=== PATIENT | female | born 1950 | race Caucasian/White ===

== ENCOUNTER 2018-06-07 20:31 | Emergency (ER) | payer MEDICARE, OTHER, SELFPAY ==
[2018-06-07 20:55] VITALS: BP 148/97; PULSE 88; RESP 21; TEMP 36.9; O2SAT 94; BMI 24.3
== END 2018-06-07 22:14 | disposition left against medical advice (07) ==
PROVIDERS: Emergency Provider Emergency Medicine; Family Provider Family Medicine; PCP Family Medicine
DX: Z53.21 Procedure and treatment not carried out due to patient leaving prior to being seen by health care provider (principal)
CPT/HCPCS: 99282

== ENCOUNTER 2020-04-28 16:49 | Observation (INO) | payer MEDICARE, OTHER, SELFPAY ==
[2020-04-28] VITALS (10 sets, daily range): BP systolic 107–172; BP diastolic 68–92; PULSE 60–80; RESP 16–28; TEMP 36.2–36.7; O2SAT 95–99; BMI 26.6
--- NOTE | 2020-04-28 17:07 | ED_ITS ---
HPI - Neuro Symptoms/Deficit General Chief Complaint: Neuro Symptoms/Deficit Stated Complaint: Vision changes, weakness, bumping into things Time Seen by Provider: 04/28/20 16:59 Source: patient Mode of arrival: Ambulatory Limitations: no limitations History of Present Illness HPI Narrative: Patient is a 69-year-old female who is here in the emergency department with her for evaluation of 2 separate episodes that occurred earlier today. States that the 1st episode involved his situation where she was at her home when she noticed vision disturbances. She stated that she did have blurry vision had difficult time focusing. Her thought that she was having some word-finding issues at the time it potentially was having drooping of the right side of her face but he was not completely sure this. In the thought that the symptoms lasted approximately 10 minutes and then completely resolved. She states that it occurred again a couple hours later. He was the same symptoms but this time lasting a shorter period of time. 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 On Anticoagulants: No Related Data Home Medications Medication Instructions Recorded Confirmed simvastatin 20 mg PO QAM #0 05/19/17 Previous Rx's Medication Instructions Recorded oxycodone-acetaminophen [Percocet] 1 tab PO Q4HP PRN #20 tab 05/19/17 ondansetron HCl 4 mg PO Q6HP PRN #10 05/21/17 oxycodone 1 mg PO Q3HP PRN #20 05/21/17 Allergies Allergy/AdvReac Type Severity Reaction Status Date / Time Penicillins [PENICILLINS] Allergy Unknown HIVES-SEVERITY Verified 04/28/20 18:01 NOT LISTED Review of Systems Constitutional Constitutional: Denies fever(s) and Denies headache(s) Eyes Eyes: Reports blurry vision and Reports change in vision ENT Ears, Nose, Mouth, and Throat: Denies vertigo, Denies dizziness, Denies headache(s), Denies sinus pain and Denies sore throat Cardiovascular Cardiovascular: Denies chest pain, Denies dyspnea and Denies dyspnea on exertion Respiratory Respiratory: Denies cough, Denies dyspnea and Denies dyspnea on exertion Gastrointestinal Gastrointestinal: Denies abdominal pain, Denies nausea and Denies vomiting Genitourinary Genitourinary: Denies dysuria Genitourinary: Denies dysuria Musculoskeletal Musculoskeletal: Denies arthralgias, Denies myalgias and Denies tingling Integumentary/Breasts Skin/Breast: Denies rash Neurologic Neurologic: Reports abnormal speech, Reports confusion, Denies vertigo, Denies d izziness, Denies headache(s) and Denies tingling Psychiatric Psychiatric: Reports confusion Hematologic/Lymphatic On Anticoagulants: No Allergic/Immunologic Allergic/Immunologic: Denies urticaria Patient History Medical History Hypertension Right kidney stone Social History Smoking Status: Former smoker Smoking Status: Former smoker alcohol intake frequency: 3 or more drinks per day Substance Use Type: does not use Exam Initial Vital Signs Initial Vital Signs: Vital Signs Pulse Rate 74 04/28/20 16:58 Respiratory Rate 23 04/28/20 16:58 Blood Pressure 172/90 H 04/28/20 16:58 Const General: cooperative and comfortable Limitations: mental status not altered HENMT Head: normal to inspection and normocephalic Ears: hearing grossly normal bilaterally Eyes General: appearance normal, both eyes and all related structures Pupils: PERRL EOM: EOM intact bilaterally Resp Effort & Inspection: normal respiratory effort Auscultation: clear to auscultation bilaterally Cardio Rate: regular rate Rhythm: regular rhythm GI Inspection: non-distended Palpation: soft and No tender Back/Spine/Pelvis Back: normal to inspection Skin Lesions: no lesions Rashes: no rashes Neuro General: patient alert, patient awake and patient oriented x3 Cranial Nerves: CN's II-XI intact bilaterally Cognition: normal cognition Speech: speech normal Gait: normal gait Motor: muscle tone normal throughout Sensory Exam: no sensory deficits noted Coordination: [id number]-aq-mvcy test normal Extrem General: normal to inspection and capillary refill normal Psych Appearance: grossly normal and well kempt Scores ABCD2 Age >= 60 years: yes Initial BP. Either SBP >= 140 or DBP >= 90.: yes Clinical features of the TIA: unilateral weakness Duration of symptoms: < 10 minutes History of diabetes: no ABCD2 Score: 4 GCS [place] coma scale eye opening: Spontaneous [place] coma scale verbal response: Orientated Percy coma scale motor response: Obey commands [place] coma scale total score: 15 NIH Stroke Scale Level of Conciousness: Alert, keenly responsive Ask month/age: Answers both questions correctly. Open/close eyes, close hand: Performs both tasks correctly Best gaze horizontal: Normal Visual franklin: No visual loss Facial palsy: Normal symetrical movement Left arm drift: No drift for full 10 sec Right arm drift: No drift for full 10 sec Left leg drift: No drift for full 5 sec Right leg drift: No drift for full 5 sec Limb ataxia: Absent Sensory on face/arms/legs: Normal, no sensory loss Best language: No aphasia, normal Dysarthria: Normal Extinction or inattention: No abnormality Total NIH Stroke scale score: 0 Course Orders Ordered: ED Orders 04/28/20 17:05 Complete Blood Count AUTO DIFF Stat Comprehensive Metabolic Panel Stat Ethanol (ETOH) Stat Lipase Stat Partial Thromboplastin Time Stat Prothrombin Time INR Stat Troponin & CK Cardiac Panel Stat 04/28/20 17:08 CT head/brain wo con Stat 04/28/20 17:09 EKG-12 Lead Stat Discontinued Medications Aspirin (Aspirin 81 Mg Chew Tab) 324 mg PO NOW ONE Stop: 04/28/20 17:58 Last Admin: 04/28/20 18:02 Dose: 324 mg Documented by: BRANDEE Vital Signs Vital signs: Vital Signs - 8 hr 04/28/20 16:58 04/28/20 16:59 04/28/20 17:00 Temperature 98.1 F Pulse Rate 74 71 74 Respiratory Rate 23 16 28 H Blood Pressure 172/90 H 157/88 H 157/88 H Pulse Oximetry 99 MDM - Neuro Symptoms/Deficit Medical Records Attestation: I reviewed the patient's medical records. Lab Data Attestation: I reviewed the patient's lab results. Result diagrams: 04/28/20 17:05 04/28/20 17:05 Labs: Lab Results 04/28/20 04/28/20 04/28/20 Range/Units 17:05 17:05 17:05 WBC 6.0 (4.5-11.0) X10^3/uL RBC 4.44 (4.0-5.2) X10^6/uL Hgb 13.9 (12.0-16.0) g/dL Hct 41.6 (36-46) % MCV 93.6 (80-100) fL MCH 31.4 (26-34) PG MCHC 33.5 (30-36) % RDW 14.4 (11.6-14.8) % Plt Count 207 (150-400) X10^3/uL Neut % (Auto) 63.3 (50-75) % Lymph % (Auto) 27.0 (25-40) % Marion % (Auto) 9.4 (3-14) % Eos % (Auto) 0.0 L (2-4) % Baso % (Auto) 0.3 (0-2) % Neut # (Auto) 3800 (8966-6384) /uL Lymph # (Auto) 1600 (7908-2736) /uL Marion # (Auto) 600 (0-900) /uL Eos # (Auto) 0 (0-450) /uL Baso # (Auto) 0 (0-100) /uL PT 10.2 (10.1-12.7) SECONDS INR 0.9 (0.9-1.3) APTT 32 (26.4-36.2) SECONDS Sodium 135 L (137-145) mmol/L Potassium 4.2 (3.4-5.1) mmol/L Chloride 104 (98-107) mmol/L Carbon Dioxide 26 (22-32) mmol/L BUN 26 H (7-17) mg/dL Creatinine 0.88 (0.52-1.04) mg/dL Estimated GFR > 60.0 (>60) mL/min BUN/Creatinine Ratio 29.5 H (6-22) Glucose 105 (80-110) mg/dL Calcium 9.9 (8.4-10.2) mg/dL Total Bilirubin 0.4 (0.2-1.3) mg/dL AST 32 (14-36) IU/L ALT 22 (<35) IU/L Alkaline Phosphatase 62 (38-126) U/L Total Creatine Kinase 33 (30-135) U/L CK-MB (CK-2) TNP CK-MB (CK-2) Rel Index TNP Troponin I < 0.012 (0.01-0.034) ng/mL Total Protein 7.5 (6.3-8.2) g/dL Albumin 4.3 (3.5-5.0) g/dL Globulin 3.2 (1.7-4.1) g/dL Albumin/Globulin Ratio 1.3 (1.0-2.8) Lipase 153 (23-300) U/L Ethyl Alcohol < 10 ( - 10) mg/dL Point of Care Testing Glucose POC [address] scan - head: Radiologist's Impression: [address] [id number] Scan ReportSigned Patient: Cecilia Valladares JMR#: [id number]: 1950Acct:[id number]/Sex: 69 / FDate of Service: 04/28/20Loc: EDAccession Number: [id number] Procedure: CT head/brain wo con Ordering Provider: Dong Rush D.O. PROCEDURE: CT HEAD/BRAIN WO CON INDICATIONS: Probable TIA earlier today TECHNIQUE: Noncontrast 4.5 mm thick angled axial sections acquired from the foramen magnum to the vertex, with coronal and sagittal reformats. For radiation dose reduction, the following was used: automated exposure control, adjustment of mA and/or kV according to patient size. COMPARISON: None. FINDINGS: Image quality: Excellent. CSF spaces: Basal cisterns are patent. No extra-axial fluid collections. The ventricles are symmetric in size and shape. Brain: No intracranial bleeds or masses. There is cerebral volume loss for age, with resultant ventricular and sulcal prominence. There are periventricular and deep white matter chronic small vessel ischemic changes. There is intracranial internal carotid artery atherosclerosis. Skull and face: Calvarium and visualized facial bones appear intact, without suspicious lesions. Sinuses: Visualized sinuses and mastoids are clear. IMPRESSION: No acute process. Dictated by: Bladimir Prajapati M.D. on 04/28/2020 at 16:28 Approved by: Bladimir Prajapati M.D. on 04/28/2020 at 16:28 ECG Data Attestation: I personally reviewed and interpreted this ECG as follows: Prior ECG tracings: not available for review Interpretation: Sinus rhythm Ventricular rate is 67 Normal axis Normal QRS Normal QTC No ST T wave changes MDM Narrative Medical decision making narrative: Initially I thought the patient did not have a diagnosis of hypertension however she stated that she is on antihypertensive medications however normally her blood pressure is not as elevated as it was here in the ER. Her symptoms had completely resolved prior to arrival here in the emergency department. She had a normal neurologic exam. NIH score 0. Has ABCD2 score of 4. Patient's head CT is unremarkable. Suspect TIA. Discussed case with Dr. king who will admit for further evaluation and treatment. Discuss the admission with the patient who expressed understanding and agreement. Discharge Plan Departure Patient Disposition: Admitted as Observation Clinical Impression: Transient cerebral ischemia, Hypertension Admit Date/Time: 04/28/20 17:58 Admit Provider: Carol King
[2020-04-28 17:14] LABS: Add Manual Diff / Slide Review NO; Basophils Absolute Auto 0 /uL (0-100); Basophils Percent Auto 0.3 % (0-2); Eosinophils Absolute Auto 0 /uL (0-450); Hematocrit 41.6 % (36-46); Hemoglobin 13.9 g/dL (12.0-16.0); Lymphocytes Absolute Auto 1600 /uL (1100-4500); Mean Corpuscular HGB Conc 33.5 % (30-36); Mean Corpuscular Hemoglobin 31.4 PG (26-34); Mean Corpuscular Volume 93.6 fL (80-100); Monocytes Absolute Auto 600 /uL (0-900); Monocytes Percent Auto 9.4 % (3-14); Neutrophils Absolute Auto 3800 /uL (1500-7000); Neutrophils Percent Auto 63.3 % (50-75); Platelet Count 207 X10^3/uL (150-400); Red Blood Cell Count 4.44 X10^6/uL (4.0-5.2); Red Cell Distribution Width 14.4 % (11.6-14.8)
[2020-04-28 17:22] LABS: INR 0.9 (0.9-1.3); Prothrombin Time 10.2 SECONDS (10.1-12.7)
[2020-04-28 17:24] LABS: PTT Partial Thromboplastin Tim 32 SECONDS (26.4-36.2)
[2020-04-28 17:26] LABS: Alanine Aminotransferase 22 IU/L (<35); Albumin 4.3 g/dL (3.5-5.0); Albumin Globulin Ratio 1.3 (1.0-2.8); Alkaline Phosphatase 62 U/L (38-126); Aspartate Aminotransferase 32 IU/L (14-36); BUN Creatinine Ratio 29.5 (6-22); Bilirubin Total 0.4 mg/dL (0.2-1.3); Blood Urea Nitrogen 26 mg/dL (7-17); Calcium 9.9 mg/dL (8.4-10.2); Carbon Dioxide 26 mmol/L (22-32); Chloride 104 mmol/L (98-107); Creatine Kinase 33 U/L (30-135); Estimated Glomerular Filt Rate > 60.0 mL/min (>60); Globulin 3.2 g/dL (1.7-4.1); Glucose 105 mg/dL (80-110); HEMOLYSIS < 15 (0-50); Lipase 153 U/L (23-300); Potassium 4.2 mmol/L (3.4-5.1); Sodium 135 mmol/L (137-145); Total Protein 7.5 g/dL (6.3-8.2)
[2020-04-28 17:38] LABS: Troponin I < 0.012 ng/mL (0.01-0.034)
[2020-04-28 17:42] LABS: Ethanol (ETOH) < 10 mg/dL
[2020-04-28] MEDS: ASPIRIN 81 MG CHEW TAB 324 MG PO (18:02)
[2020-04-28 18:43] LABS: COVID19 -Nasal RAPID Negative (Negative)
--- NOTE | 2020-04-28 18:57 | DI.MRI.S_ITS ---
PROCEDURE: MR STROKE Pre- and post-contrast brain MRI, non-contrast brain MR angiogram, pre- and postcontrast neck MR angiogram INDICATIONS: r/o stroke/TIA TECHNIQUE: Brain: Noncontrast axial T1 spin echo, axial T2 fast spin echo, sagittal and axial FLAIR, coronal T2 fast spin echo, axial gradient echo, axial diffusion and ADC through the brain. After the administration of contrast, axial 3D VIBE of the cranial vasculature and brain. Brain MRA: Non-contrast 3-D time of flight MR angiogram, with multiple dkxhrck-voebsgwey-pmscqinpax (MIP) reformats performed. Neck MRA: Axial and sagittal TruFISP through the neck. Coronal dynamic MR angiogram during administration of contrast in the arterial and venous phases, with 3-dimenstional yrfqdcn-hulelzock-fjcuzretnb (MIP) reformats constructed from subtraction images. COMPARISON: [facility], CT, CT HEAD/BRAIN WO CON, 04/28/2020, 17:10. FINDINGS: Image quality: Degraded by motion artifact BRAIN: CSF spaces: Ventricles are normal in size and shape. Basal cisterns are patent. No extra-axial fluid collections. Brain: No intracranial bleeds or mass effects. Mild diffuse cerebral volume loss. Minimal degree of patchy high FLAIR signal within the periventricular and subcortical white matter. Diaz-white matter interface is normal. Diffusion weighted images demonstrate a 7 mm focus of elevated signal intensity within right medial thalamus which demonstrates mild FLAIR signal elevation and low ADC map signal. Brainstem appears normal. Normal intravascular flow voids are present. No abnormal intracranial enhancement. Skull and face: Calvarial marrow signal is normal. Orbits appear normal. Sinuses: Sinuses and mastoids are clear. BRAIN MR ANGIOGRAM: Anterior circulation: Intracranial internal carotid arteries are normal in size and enhancement. The flow within the paired anterior cerebral arteries is normal and symmetric. The flow within the middle cerebral arteries is normal and symmetric. The anterior communicating artery is seen. No stenoses, occlusions, or aneurysms. Posterior circulation: The visualized portions of the vertebral arteries demonstrate normal caliber, and join to form a normal appearing basilar artery. The flow within the posterior cerebral arteries is normal and symmetric. No stenoses, occlusions, or aneurysms. NECK MR ANGIOGRAM: Cabin Supervisor T2 imaging through the neck is grossly unremarkable. Thoracic aortic arch is widely patent as visualized. Innominate and right subclavian arteries are patent. Right vertebral artery origin is not well seen, but the right vertebral artery otherwise within normal limits. Right, internal, and external carotid arteries are grossly patent. Left and external carotid arteries are patent. There is a roughly 40-50% stenosis the origin of the left internal carotid artery, which is suboptimally visualized. Left subclavian artery is patent. Left vertebral artery is patent. IMPRESSION: Examinations are degraded by motion artifact. BRAIN MRI: 1. 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 2. Mild diffuse cerebral volume loss. Minimal small vessel ischemic disease. BRAIN MR ANGIOGRAM: Grossly unremarkable cerebral MR angiography. NECK MR ANGIOGRAM: 1. No right internal carotid artery stenosis. Suboptimally visualized moderate left internal carotid artery origin stenosis. Further assessment with carotid arterial Doppler examination is recommended. 2. Nonvisualized right vertebral artery origin, possibly representing a high-grade stenosis. Patent left vertebral artery. Dictated by: Bladimir Prajapati M.D. on 04/29/2020 at 9:16 Approved by: Bladimir Prajapati M.D. on 04/29/2020 at 9:22
--- NOTE | 2020-04-28 19:18 | PM.HP.1 ---
History of Present Illness History of Present Illness Date Patient Seen: 04/28/20 Time Patient Seen: 19:18 Chief complaint: Vision changes, weakness, bumping into things Narrative: Patient is a 69-year-old female Cecilia Valladares who presented to the ED with her for evaluation of 2 episodes of altered vision, possible word-finding difficulty, and right side of face. Patient has a history new onset hypertension, depression, lump at to me of the right breast for breast cancer, renal stones and lithotripsy, an osteotomy with angelika placement and pins repair of the left humerus, frequent UTIs and cystitis, hx of migraines. Patient states that upon wakening (approx 8 am) while reading the newspaper at the kitchen table she had blurry vision had difficult time focusing. Her thought that she was having some word-finding issues at the time it potentially was having drooping of the right side of her face but he was not completely sure this. In the thought that the symptoms lasted approximately 10 minutes and then completely resolved. She states that it occurred again a couple hours later about 1 pm. The same symptoms but this time lasting a shorter period of time less than 10 min. Patient describes the feeling of a post migraine aura following these episodes. During these events patient denies difficulty with balance or coordination, chest pain, shortness of breath, abdominal pain, nausea, or vomiting. Patient states that she was recently diagnosed with hypertension and was prescribed lisinopril 20 mg and Atrovastatin 40 mg, she states that her at-home blood pressure checks have demonstrated for the past several weeks that the lisinopril is not controlling her blood pressure she is scheduled for a f/u with her PCP next week. She has not had any events like this in the past denies any other medical hx , she notes her father had multiple strokes and from a stroke. 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 Upon admit to the floor patient is alert orientated speaking clearly and moving all extremities without difficulty. She does complain of feeling mildly warm and a generalized weakness and fatigue. Patient's vitals upon admit temp 97.7?, BP 150/89, HR 66, O2 saturation 95% on room air, sodium 135, BUN 26, BUN creatinine ratio 29.5, troponin negative, lipase negative, head CT: Demonstrated no acute process, EKG: Normal sinus rhythm without ST or T-wave changes. ABCD 2 score of 4, NIHSS 0. Patient admitted for observation rule out stroke/TIA and MRI in the morning. Patient History Medical History (Updated 04/28/20 @ 20:24 by CHARMAINE Restrepo-) Breast cancer Cystitis Depression Fracture, humerus Hypertension Right kidney stone Surgical History (Updated 04/28/20 @ 20:24 by CHARMAINE Restrepo-) Fracture of surgical neck of humerus History of lumpectomy of right breast Family & Social History Family History (Updated 04/28/20 @ 20:26 by CHARMAINE Restrepo-JORDYN) Father Stroke Mother Hypertension Pulmonary hypertension due to aortic valve disease Social History: household members spouse Prior Living Arrangements House Safety & Behavioral: Feels Safe in Current Yes Environment Been Physically Hurt or No Threatened By a Person Suicidal Ideation Description None Suicide Plan Description No Plan Tobacco & Substance use: Smoking Status Former smoker alcohol intake current alcohol intake frequency 4 or more glasses of wine per day Substance Use Type does not use Meds Home Medications and Allergies Home Medications Medication Instructions Recorded Confirmed Type Calcium 600 with Vitamin D3 1 POSTTR 04/28/20 History atorvastatin 40 mg PO DAILY 04/28/20 04/28/20 History cranberry 400 mg PO DAILY 04/28/20 04/28/20 History lisinopril 20 mg PO DAILY 04/28/20 04/28/20 History omega-3 fatty acids-vitamin E 1 cap 04/28/20 History [Fish Oil] paroxetine HCl [Paxil] 10 mg PO DAILY 04/28/20 04/28/20 History Allergies Allergy/AdvReac Type Severity Reaction Status Date / Time Penicillins [PENICILLINS] Allergy Unknown HIVES-SEVERITY Verified 04/28/20 18:01 NOT LISTED Review of Systems Review of Systems ROS: Yes All systems reviewed with the patient and are negative except as otherwise documented Constitutional Constitutional: Reports fatigue and Reports weakness Neurologic Neurologic: Reports weakness Endocrine Endocrine: Reports fatigue Exam Vital Signs (past 8 hours): - 04/28/20 16:58 04/28/20 16:59 04/28/20 17:00 Temperature 98.1 F Pulse Rate 74 71 74 Respiratory Rate 23 16 28 H Blood Pressure 172/90 H 157/88 H 157/88 H Pulse Oximetry 99 04/28/20 17:30 04/28/20 18:00 04/28/20 18:40 Temperature 97.7 F Pulse Rate 68 70 66 Respiratory Rate 16 Blood Pressure 158/78 H 168/83 H 150/89 H Pulse Oximetry 97 95 Oxygen Delivery Method Room Air Narrative Exam Narrative: General: Patient is a well-developed, well-nourished female in no distress at this time. HEENT: Normocephalic, atraumatic, extraocular muscles intact, oral pharynx is clear and mucous membranes are moist. Neck is supple and symmetric, trachea is midline, no adenopathy, no thyroid enlargement, nontender, no masses palpated. Negative for JVD Chest: Normal AP diameter and contour without kyphoscoliosis, no nasal flaring, retractions, or tachypneic labored Lungs: Auscultation of all lung franklin are clear without adventitious sounds, wheezes, rhonchi, or rales. Cardio: S1 & S2 with regular rate and rhythm without murmur, rubs, or gallops, no carotid bruit, no cardiac pulsations present. Abdomen: Soft nontender, negative for organomegaly, or masses. Bowel sounds are present in all 4 quadrants without guarding or rebound, no CVA tenderness. Musculoskeletal: Muscle strength and tone are equal within normal limits, no deformity, crepitus, effusions, cyanosis, clubbing or edema present. Full range of motion intact radial and pedal pulses are normal. Skin: Warm dry and intact without rashes, ulcerations or petechiae. Neuro: Alert and orientated x3, strength is +5/5 in all extremities, sensation to touch intact, no gross deficits noted of cranial nerves. Psych: Patient has a well-kept appearance, appropriate affect, mental status attitude thought context and judgment are appropriate for age. Objective Labs Result Diagrams: 04/28/20 17:05 04/28/20 17:05 Labs: Laboratory Results - last 24 hr 04/28/20 04/28/20 04/28/20 17:05 17:05 17:05 WBC 6.0 RBC 4.44 Hgb 13.9 Hct 41.6 MCV 93.6 MCH 31.4 MCHC 33.5 RDW 14.4 Plt Count 207 Neut % (Auto) 63.3 Lymph % (Auto) 27.0 Sherman % (Auto) 9.4 Eos % (Auto) 0.0 L Baso % (Auto) 0.3 Neut # (Auto) 3800 Lymph # (Auto) 1600 Sherman # (Auto) 600 Eos # (Auto) 0 Baso # (Auto) 0 PT 10.2 INR 0.9 APTT 32 Sodium 135 L Potassium 4.2 Chloride 104 Carbon Dioxide 26 BUN 26 H Creatinine 0.88 Estimated GFR > 60.0 BUN/Creatinine Ratio 29.5 H Glucose 105 Calcium 9.9 Total Bilirubin 0.4 AST 32 ALT 22 Alkaline Phosphatase 62 Total Creatine Kinase 33 CK-MB (CK-2) TNP CK-MB (CK-2) Rel Index TNP Troponin I < 0.012 Total Protein 7.5 Albumin 4.3 Globulin 3.2 Albumin/Globulin Ratio 1.3 Lipase 153 Ethyl Alcohol < 10 SARS-CoV-2 (PCR) 04/28/20 18:19 WBC RBC Hgb Hct MCV MCH MCHC RDW Plt Count Neut % (Auto) Lymph % (Auto) Sherman % (Auto) Eos % (Auto) Baso % (Auto) Neut # (Auto) Lymph # (Auto) Sherman # (Auto) Eos # (Auto) Baso # (Auto) PT INR APTT Sodium Potassium Chloride Carbon Dioxide BUN Creatinine Estimated GFR BUN/Creatinine Ratio Glucose Calcium Total Bilirubin AST ALT Alkaline Phosphatase Total Creatine Kinase CK-MB (CK-2) CK-MB (CK-2) Rel Index Troponin I Total Protein Albumin Globulin Albumin/Globulin Ratio Lipase Ethyl Alcohol SARS-CoV-2 (PCR) Negative Assessment & Plan Assessment & Plan narrative: 1. Acute TIA, condition guarded, r/o stroke likely resulting in alcohol intake, uncontrolled hypertension, possible hyperlipidemia. Acute, present on admission -differential diagnosis TIA, stroke symptoms lasting greater than 24 hours, ischemic stroke, intracranial hemorrhage, subdural hematoma, epidural hematoma, seizure, brain tumor, migraine, vertigo, hypoglycemia, Johnna [place] syndrome, multiple sclerosis, aortic dissection -note history dyslipidemia, hypertension, and migraine history. -Patient's vitals upon admit temp 97.7?, BP 150/89, HR 66, O2 saturation 95% on room air, sodium 135, BUN 26, BUN creatinine ratio 29.5, troponin negative, lipase negative, head CT: Demonstrated no acute process, EKG: Normal sinus rhythm without ST or T-wave changes. ABCD 2 score of 4, NIHSS 0. Patient admitted for observation rule out stroke/TIA and Vital signs q.4 hours, neuro checks Qday, notify provider for temp greater than 38 C, systolic blood pressure > 200 or <120, heart rate >100 -treat systolic blood pressure>220 or diastolic blood pressure> 120 -activity bed rest, strict fall precautions. Orthostatic vitals Q a.m. Weight Qday, intake and output monitored Q shift -supplemental O2 to maintain> 93%. -Diet NPO until swallow evaluation is done, then heart healthy if cleared -fluids:None -Medications: Aspirin 325 mg p.o. q.day within 48 hours, Plavix 75 mg daily, atorvastatin 80 mg q.day acetaminophen 250 mg q.6 hours for 48 hours to prevent fever. -labs CBC with platelets, PT/PTT/INR, CMP, troponins x3 ESR/CRP, Lipid panel, u/a -neurology consult, PT/OT/ST evaluations -ABCD: 4, NIHSS score:0, GCS: 15 -diagnostics: MRI ordered for tomorrow -discharge planning establish patient is safe to physically go home. -prevention vaccine: Recommend yearly seasonal flu, shingles, pneumonia, COVID-19 when available 2. Hypertension essential, acute on chronic, uncontrolled, present on admission -continue patient's lisinopril 20 mg 3. Depression, chronic, well controlled, not present on admission -patient denies suicidal ideation, continue patient's Paxil 10 mg once daily Code status:Full Surrogate/plan of care:Levi Valladares (Spouse) COVID PCR:Negative VTE prophylaxis:Plavix 75 mg & SCDs Scores GCS [place] coma scale eye opening: Spontaneous Percy coma scale verbal response: Orientated Percy coma scale motor response: Obey commands Percy coma scale total score: 15 NIHSS Level of Conciousness: Alert, keenly responsive Ask month/age: Answers both questions correctly. Open/close eyes, close hand: Performs both tasks correctly Best gaze horizontal: Normal Visual franklin: No visual loss Facial palsy: Normal symetrical movement Left arm drift: No drift for full 10 sec Right arm drift: No drift for full 10 sec Left leg drift: No drift for full 5 sec Right leg drift: No drift for full 5 sec Limb ataxia: Absent Sensory on face/arms/legs: Normal, no sensory loss Best language: No aphasia, normal Dysarthria: Normal Extinction or inattention: No abnormality Total NIH Stroke scale score: 0 Quality VTE Deep Vein Thrombosis/Pulmonary Embolism Present on Admission: No
[2020-04-28] MEDS: ATORVASTATIN 20 MG TABLET 80 MG PO (20:16)
[2020-04-28 20:17] LABS: Appearance Urine UA SL CLOUDY; Bilirubin Urine UA NEGATIVE (NEGATIVE); Color Urine UA YELLOW; Glucose Urine UA NEGATIVE (Negative); Ketones Urine UA NEGATIVE (NEGATIVE); Leukocyte Esterase Urine UA 3+ (NEGATIVE); Nitrite Urine UA POSITIVE (Negative); Occult Blood Urine UA 2+ (Negative); Protein Urine UA TRACE (Negative); Urobilinogen Urine UA 0.2 E.U./dL (0.2); pH Urine UA 6.5 (4.5-8.0)
[2020-04-28] MEDS: SODIUM CHLORIDE 0.9% FLUSH 10 ML IV (20:22)
--- NOTE | 2020-04-28 20:22 | PC.NURSE ---
Addendum entered by Jen Vo R.N. 04/28/20 20:55: Pt's NIH deferred to CAROLYN Whiting who performs physical assessment while this specifications writer in room. No deficits noted or observed. Addendum entered by Jen Vo R.N. 04/28/20 20:42: Informed pt protocol per CAROLYN Whiting is to increase statin to 80 mg. Pt reports took 40 mg atorvastatin this a.m. Administered 40 mg @ hs to total 80 mg for 04/28. Original Note: Pt to room 217 from [facility]. awake, alert and conversant. No focal deficits noted. Pt denies any vision changes or compromise. Full strength in all extremities with clear and coherent speech. Pt has already eaten a [employer] sandwich and consumed a purchased water brought in by spouse prior to this specifications writer seeing pt in room 217. No swallow deficits. Pt denies pain. CAROLYN Whiting in to see patient. Pt reports dizziness when up to toilet and CAROLYN Whiting informed. Orthostatic pulse and blood pressures obtained. Tele in place and ICU informed. BL calf scd's in place and pt was instructed not to attempt out of bed without calling for staff assistance. Reoriented to call light and bed alarm in place.
[2020-04-28 20:23] LABS: RBC Urine 30-100/HPF (0-5/HPF); Squamous Epithelial Cell Urine 0-1 /HPF (0-5/HPF); WBC Urine 10-30/HPF (0-5/HPF)
[2020-04-28 20:24] LABS: Amorphous Sediment Urine 1+; Bacteria Urine Few (2-10); Culture Indicated Urine Specimen Cultured; Mucus Urine 1+ (Negative)
--- NOTE | 2020-04-29 00:29 | PC.NURSE ---
Addendum entered by Ros Ly R.N. 04/29/20 06:12: Orthostatic blood pressures measured and show a 19(Systolic) and 10(Diastolic) point rise. Vital recording can be seen in chart. Addendum entered by Ros Ly R.N. 04/29/20 05:23: Pt voiced concern for anxiety with MRI, states h/o claustrophobia. Informed CAROLYN Aleman, who ordered 1mg PO lorazepam prior to exam. LM for MRI staff asking for a call back to inform us of time frame for exam so we know when to administer med. Original Note: 2320 Received safe hand-off report. The patient is lying on her left side in bed. She is AOx4, on room air, and has a left forearm PIV that is saline-locked. Nursing swallow screen negative. NIH 0. Cardiac telemetry showing NSR. No s/s of distress. Plan: At 0500, lab will draw blood which includes troponin. At 0600, will do orthostatic BP check. Between 9005-7191, MRI STROKE R/O
[2020-04-29] MEDS: PANTOPRAZOLE 20 MG TABLET PO (05:13)
[2020-04-29 05:41] LABS: Add Manual Diff / Slide Review NO; Basophils Absolute Auto 0 /uL (0-100); Basophils Percent Auto 0.1 % (0-2); Eosinophils Absolute Auto 0 /uL (0-450); Hematocrit 38.6 % (36-46); Hemoglobin 12.8 g/dL (12.0-16.0); Lymphocytes Absolute Auto 1500 /uL (1100-4500); Mean Corpuscular Volume 93.9 fL (80-100); Monocytes Absolute Auto 400 /uL (0-900); Monocytes Percent Auto 10.3 % (3-14); Neutrophils Absolute Auto 2200 /uL (1500-7000); Neutrophils Percent Auto 52.6 % (50-75); Platelet Count 168 X10^3/uL (150-400); Red Blood Cell Count 4.11 X10^6/uL (4.0-5.2); Red Cell Distribution Width 14.5 % (11.6-14.8); White Blood Cell Count 4.2 X10^3/uL (4.5-11.0)
[2020-04-29 05:43] LABS: INR 0.9 (0.9-1.3); Prothrombin Time 10.8 SECONDS (10.1-12.7)
[2020-04-29 05:52] LABS: BUN Creatinine Ratio 34.6 (6-22); Blood Urea Nitrogen 28 mg/dL (7-17); Calcium 9.2 mg/dL (8.4-10.2); Carbon Dioxide 30 mmol/L (22-32); Chloride 104 mmol/L (98-107); Cholesterol 187 mg/dL (140-199); Estimated Glomerular Filt Rate > 60.0 mL/min (>60); Glucose 98 mg/dL (80-110); HDL Cholesterol 76 mg/dL (40-60); HEMOLYSIS < 15 (0-50); LDL Cholesterol Calculated 93 mg/dL (<100); Magnesium 2.1 mg/dL (1.6-2.3); Potassium 4.4 mmol/L (3.4-5.1); Sodium 136 mmol/L (137-145); Triglycerides 89 mg/dL (35-150)
[2020-04-29 06:00] VITALS: BP 128/87; BP 131/95; BP 147/97; PULSE 63; PULSE 65; PULSE 67; RESP 16; TEMP 36.6; O2SAT 94
[2020-04-29 06:02] LABS: NT-proBNP (BNP-Adult 18+) 186 pg/mL (<125); Troponin I < 0.012 ng/mL (0.01-0.034)
[2020-04-29 06:04] LABS: C-Reactive Protein Quant 0.6 mg/dL (<1.0)
[2020-04-29 06:05] LABS: Erythrocyte Sedimentation Rate 4 MM/HR (0-20)
[2020-04-29 06:31] LABS: Thyroid Stimulating Hormone 1.54 uIU/mL (0.47-4.68)
[2020-04-29] MEDS: LORazepam 1 MG TABLET PO (07:22)
[2020-04-29 07:49] VITALS: BP 147/87; PULSE 60; RESP 16; TEMP 36.6; O2SAT 96
[2020-04-29 09:16] VITALS: BP 138/83; PULSE 66
[2020-04-29] MEDS: ASPIRIN EC 81 MG TABLET PO (09:16)
[2020-04-29] MEDS: CLOPIDOGREL 75 MG TABLET PO (09:16)
[2020-04-29] MEDS: lisinopriL 20 MG TABLET PO (09:16)
[2020-04-29] MEDS: PARoxetine 20 MG TABLET 10 MG PO (09:16)
[2020-04-29 09:17] VITALS: BP 138/83; PULSE 66
[2020-04-29 09:27] VITALS: O2SAT 96
[2020-04-29] MEDS: SODIUM CHLORIDE 0.9% FLUSH 10 ML IV (09:46)
--- NOTE | 2020-04-29 11:00 | P.DS_ITS ---
History of Present Illness History of Present Illness Date Patient Seen: 04/29/20 Time Patient Seen: 10:30 Chief complaint: Vision changes, weakness, bumping into things Narrative: As per CHARMAINE Restrepo-JORDYN: Patient is a 69-year-old female Cecilia Valladares who presented to the ED with her for evaluation of 2 episodes of altered vision, possible word- finding difficulty, and right side of face. Patient has a history new onset hypertension, depression, lump at to me of the right breast for breast cancer, renal stones and lithotripsy, an osteotomy with angelika placement and pins repair of the left humerus, frequent UTIs and cystitis, hx of migraines. Patient states that upon wakening (approx 8 am) while reading the newspaper at the kitchen table she had blurry vision had difficult time focusing. Her thought t hat she was having some word-finding issues at the time it potentially was having drooping of the right side of her face but he was not completely sure this. In the thought that the symptoms lasted approximately 10 minutes and then completely resolved. She states that it occurred again a couple hours later about 1 pm. The same symptoms but this time lasting a shorter period of time less than 10 min. Patient describes the feeling of a post migraine aura following these episodes. During these events patient denies difficulty with balance or coordination, chest pain, shortness of breath, abdominal pain, nausea, or vomiting. Patient states that she was recently diagnosed with hypertension and was prescribed lisinopril 20 mg and Atrovastatin 40 mg, she states that her at-home blood pressure checks have demonstrated for the past several weeks that the lisinopril is not controlling her blood pressure she is scheduled for a f/u with her PCP next week. She has not had any events like this in the past denies any other medical hx , she notes her father had multiple strokes and from a stroke. 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 Upon admit to the floor patient is alert orientated speaking clearly and moving all extremities without difficulty. She does complain of feeling mildly warm and a generalized weakness and fatigue. Patient's vitals upon admit temp 97.7?, BP 150/89, HR 66, O2 saturation 95% on room air, sodium 135, BUN 26, BUN creatinine ratio 29.5, troponin negative, lipase negative, head CT: Demonstrated no acute process, EKG: Normal sinus rhythm without ST or T-wave changes. ABCD 2 score of 4, NIHSS 0. Patient admitted for observation rule out stroke/TIA and MRI in the morning. Discharge Providers Provider Date of admission: 04/28/20 17:58 Discharge Date: 04/29/20 Primary care physician: Malachi Orr MD Consults: 04/28/20 18:57 Consult to Discharge Planning Routine Comment: 04/29/20 10:59 Consult to Physical Therapy Evaluate & Treat Comment: Physician Instructions: Evaluate and Treat Discharge provider: Ti Hatfield DO Summary Hospital Course Discharge Diagnosis: 1. CVA, acute, present on admission 2. HTN, chronic 3. Depression, chronic 4. Thrombocytopenia, chronic 5. Acute on chronic cystitis with hematuria, present on admission. Hospital Course: This is a 69-year-old female with a past medical history of hypertension, depression, and thrombocytopenia with remote history of malignancy who presented to the emergency room after few episodes of blurry and double vision with the questionable left-sided facial droop. Initial imaging with CT was negative and patient was admitted for further observation and an MRI. MRI revealed a small subacute R thalamic infarct and possible right Vertebral artery stenosis. There was at most 50% carotid stenosis, outpatient carotid doppler could be considered, not performed here as this would not likely size changer. Further consider outpatient echocardiogram, although patient had no evidence of atrial fibrillation while admitted. Given high ABCD2 score patient had been started on asa and plavix on admission. She will continue this for 21 days given NIHSS is <5 for now known CVA. Did discuss that her thrombocytopenia may put her at increased risk of bleeding but at this moment benefit likely outweighs this risk. Discussed after 21 days she should continue on asa or plavix, but given thrombocytopenia and 30-100 RBC in urine probably aspirin al one although ultimately recommend discussion with PCP. Patient was evaluated by Physical therapy and no further treatment is necessary. Patient recently started statin therapy as an outpatient. Continue current high intensity dosing and recommend repeat lipid panel in a few months. Her UA revealed 3+ LE, + nitrite, 30-100 RBC and 10-30 WBC. She stated she has chronic cystitis and her UA always appears to have an infection. She denied gross hematuria or burning or urinary frequency but does have intermittent LLQ pain. Given hematuria and clinical scenario, I do recommend treatment with 3 days of oral cefdinir and if no improvement in her UA an outpatient follow up with a urologist. Exam Vital Signs (past 8 hours): - 04/29/20 06:00 04/29/20 07:49 04/29/20 09:16 Temperature 97.9 F 97.8 F Pulse Rate 65 60 66 Pulse Rate [Orthostatic Lying] 65 Pulse Rate [Orthostatic Sitting] 63 Pulse Rate [Orthostatic Standing] 67 Respiratory Rate 16 16 Blood Pressure 128/87 147/87 H 138/83 Blood Pressure [Orthostatic Lying] 128/87 Blood Pressure [Orthostatic Sitting] 131/95 H Blood Pressure [Orthostatic Standing] 147/97 H Pulse Oximetry 94 96 04/29/20 09:17 04/29/20 09:27 Temperature Pulse Rate 66 Pulse Rate [Orthostatic Lying] Pulse Rate [Orthostatic Sitting] Pulse Rate [Orthostatic Standing] Respiratory Rate Blood Pressure 138/83 Blood Pressure [Orthostatic Lying] Blood Pressure [Orthostatic Sitting] Blood Pressure [Orthostatic Standing] Pulse Oximetry 96 Oxygen Delivery Method Room Air Oxygen Flow Rate 0 Narrative Exam Narrative: General: Patient is a well-developed, well-nourished female in no distress at this time. HEENT: Normocephalic, atraumatic, extraocular muscles intact, oral pharynx is clear and mucous membranes are moist. Neck is supple and symmetric, trachea is midline, no adenopathy, no thyroid enlargement, nontender, no masses palpated. Negative for JVD Chest: Normal AP diameter and contour without kyphoscoliosis, no nasal flaring, retractions, or tachypneic labored Lungs: Auscultation of all lung franklin are clear without adventitious sounds, wheezes, rhonchi, or rales. Cardio: S1 & S2 with regular rate and rhythm without murmur, rubs, or gallops, no carotid bruit, no cardiac pulsations present. Abdomen: Soft nontender, negative for organomegaly, or masses. Bowel sounds are present in all 4 quadrants without guarding or rebound, no CVA tenderness. Musculoskeletal: Muscle strength and tone are equal within normal limits, no deformity, crepitus, effusions, cyanosis, clubbing or edema present. Full range of motion intact radial and pedal pulses are normal. Skin: Warm dry and intact without rashes, ulcerations or petechiae. Neuro: Alert and orientated x3, strength is +5/5 in all extremities, sensation to touch intact. Possible L facial droop noted which improved later in the exam. Psych: Patient has a well-kept appearance, appropriate affect, mental status attitude thought context and judgment are appropriate for age. Objective Imaging MRI - head: Radiologist's impression: PROCEDURE: MR STROKE Pre- and post-contrast brain MRI, non-contrast brain MR angiogram, pre- and postcontrast neck MR angiogram INDICATIONS: r/o stroke/TIA TECHNIQUE: Brain: Noncontrast axial T1 spin echo, axial T2 fast spin echo, sagittal and axial FLAIR, coronal T2 fast spin echo, axial gradient echo, axial diffusion and ADC through the brain. After the administration of contrast, axial 3D VIBE of the cranial vasculature and brain. Brain MRA: Non-contrast 3-D time of flight MR angiogram, with multiple amyilto-aojplorws-djomnazfjh (MIP) reformats performed. Neck MRA: Axial and sagittal TruFISP through the neck. Coronal dynamic MR angiogram during administration of contrast in the arterial and venous phases, with 3- dimenstional yvjrvsk-rcvcgtdcd-seprxechqb (MIP) reformats constructed from subtraction images. COMPARISON: [facility], CT, CT HEAD/BRAIN WO CON, 04/28/2020, 17:10. FINDINGS: Image quality: Degraded by motion artifact BRAIN: CSF spaces: Ventricles are normal in size and shape. Basal cisterns are patent. No extra-axial fluid collections. Brain: No intracranial bleeds or mass effects. Mild diffuse cerebral volume loss. Minimal degree of patchy high FLAIR signal within the periventricular and subcortical white matter. Diaz-white matter interface is normal. Diffusion weighted images demonstrate a 7 mm focus of elevated signal intensity within right medial thalamus which demonstrates mild FLAIR signal elevation and low ADC map signal. Brainstem appears normal. Normal intravascular flow voids are present. No abnormal intracranial enhancement. Skull and face: Calvarial marrow signal is normal. Orbits appear normal. Sinuses: Sinuses and mastoids are clear. BRAIN MR ANGIOGRAM: Anterior circulation: Intracranial internal carotid arteries are normal in size and enhancement. The flow within the paired anterior cerebral arteries is normal and symmetric. The flow within the middle cerebral arteries is normal and symmetric. The anterior communicating artery is seen. No stenoses, occlusions, or aneurysms. Posterior circulation: The visualized portions of the vertebral arteries demonstrate normal caliber, and join to form a normal appearing basilar artery. The flow within the posterior cerebral arteries is normal and symmetric. No stenoses, occlusions, or aneurysms. 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 Thoracic aortic arch is widely patent as visualized. Innominate and right subclavian arteries are patent. Right vertebral artery or igin is not well seen, but the right vertebral artery otherwise within normal limits. Right, internal, and external carotid arteries are grossly patent. Left and external carotid arteries are patent. There is a roughly 40-50% stenosis the origin of the left internal carotid artery, which is suboptimally visualized. Left subclavian artery is patent. Left vertebral artery is patent. IMPRESSION: Examinations are degraded by motion artifact. BRAIN MRI: 1. 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 2. Mild diffuse cerebral volume loss. Minimal small vessel ischemic disease. BRAIN MR ANGIOGRAM: Grossly unremarkable cerebral MR angiography. NECK MR ANGIOGRAM: 1. No right internal carotid artery stenosis. Suboptimally visualized moderate left internal carotid artery origin stenosis. Further assessment with carotid arterial Doppler examination is recommended. 2. Nonvisualized right vertebral artery origin, possibly representing a high- grade stenosis. Patent left vertebral artery. Labs Result Diagrams: 04/29/20 05:10 04/29/20 05:10 Labs: Laboratory Results - last 24 hr 04/28/20 04/28/20 04/28/20 17:05 17:05 17:05 WBC 6.0 RBC 4.44 Hgb 13.9 Hct 41.6 MCV 93.6 MCH 31.4 MCHC 33.5 RDW 14.4 Plt Count 207 Neut % (Auto) 63.3 Lymph % (Auto) 27.0 [place] % (Auto) 9.4 Eos % (Auto) 0.0 L Baso % (Auto) 0.3 Neut # (Auto) 3800 Lymph # (Auto) 1600 [place] # (Auto) 600 Eos # (Auto) 0 Baso # (Auto) 0 ESR PT 10.2 INR 0.9 APTT 32 Sodium 135 L Potassium 4.2 Chloride 104 Carbon Dioxide 26 BUN 26 H Creatinine 0.88 Estimated GFR > 60.0 BUN/Creatinine Ratio 29.5 H Glucose 105 Calcium 9.9 Magnesium Total Bilirubin 0.4 AST 32 ALT 22 Alkaline Phosphatase 62 Total Creatine Kinase 33 CK-MB (CK-2) TNP CK-MB (CK-2) Rel Index TNP Troponin I < 0.012 C-Reactive Protein NT-Pro-B Natriuret Pep Total Protein 7.5 Albumin 4.3 Globulin 3.2 Albumin/Globulin Ratio 1.3 Triglycerides Cholesterol LDL Cholesterol, Calc HDL Cholesterol Lipase 153 TSH Urine Color Urine Appearance Urine pH Ur Specific [place] Urine Protein Urine Glucose (UA) Urine Ketones Urine Occult Blood Urine Nitrate Urine Bilirubin Urine Urobilinogen Ur Leukocyte Esterase Urine RBC Urine WBC Ur Squamous Epith Cells Amorphous Sediment Urine Bacteria Urine Mucus Ur Culture Indicated? Ethyl Alcohol < 10 SARS-CoV-2 (PCR) 04/28/20 04/28/20 04/29/20 18:19 19:55 05:10 WBC 4.2 L RBC 4.11 Hgb 12.8 Hct 38.6 MCV 93.9 MCH 31.0 MCHC 33.0 RDW 14.5 Plt Count 168 Neut % (Auto) 52.6 Lymph % (Auto) 37.0 [place] % (Auto) 10.3 Eos % (Auto) 0.0 L Baso % (Auto) 0.1 Neut # (Auto) 2200 Lymph # (Auto) 1500 [place] # (Auto) 400 Eos # (Auto) 0 Baso # (Auto) 0 ESR 4 PT INR APTT Sodium Potassium Chloride Carbon Dioxide BUN Creatinine Estimated GFR BUN/Creatinine Ratio Glucose Calcium Magnesium Total Bilirubin AST ALT Alkaline Phosphatase Total Creatine Kinase CK-MB (CK-2) CK-MB (CK-2) Rel Index Troponin I C-Reactive Protein NT-Pro-B Natriuret Pep Total Protein Albumin Globulin Albumin/Globulin Ratio Triglycerides Cholesterol LDL Cholesterol, Calc HDL Cholesterol Lipase TSH Urine Color Yellow Urine Appearance Sl cloudy Urine pH 6.5 Ur Specific [place] 1.020 Urine Protein Trace H Urine Glucose (UA) Negative Urine Ketones Negative Urine Occult Blood 2+ H Urine Nitrate Positive H Urine Bilirubin Negative Urine Urobilinogen 0.2 Ur Leukocyte Esterase 3+ H Urine RBC 30-100/hpf H Urine WBC 10-30/hpf H Ur Squamous Epith Cells 0-1 /hpf Amorphous Sediment 1+ Urine Bacteria Few (2-10) H Urine Mucus 1+ H Ur Culture Indicated? Specimen cultured Ethyl Alcohol SARS-CoV-2 (PCR) Negative 04/29/20 04/29/20 04/29/20 05:10 05:10 05:10 WBC RBC Hgb Hct MCV MCH MCHC RDW Plt Count Neut % (Auto) Lymph % (Auto) [place] % (Auto) Eos % (Auto) Baso % (Auto) Neut # (Auto) Lymph # (Auto) [place] # (Auto) Eos # (Auto) Baso # (Auto) ESR PT 10.8 INR 0.9 APTT Sodium 136 L Potassium 4.4 Chloride 104 Carbon Dioxide 30 BUN 28 H Creatinine 0.81 Estimated GFR > 60.0 BUN/Creatinine Ratio 34.6 H Glucose 98 Calcium 9.2 Magnesium 2.1 Total Bilirubin AST ALT Alkaline Phosphatase Total Creatine Kinase CK-MB (CK-2) CK-MB (CK-2) Rel Index Troponin I < 0.012 C-Reactive Protein 0.6 NT-Pro-B Natriuret Pep 186 H Total Protein Albumin Globulin Albumin/Globulin Ratio Triglycerides 89 Cholesterol 187 LDL Cholesterol, Calc 93 HDL Cholesterol 76 H Lipase TSH 1.54 Urine Color Urine Appearance Urine pH Ur Specific [place] Urine Protein Urine Glucose (UA) Urine Ketones Urine Occult Blood Urine Nitrate Urine Bilirubin Urine Urobilinogen Ur Leukocyte Esterase Urine RBC Urine WBC Ur Squamous Epith Cells Amorphous Sediment Urine Bacteria Urine Mucus Ur Culture Indicated? Ethyl Alcohol SARS-CoV-2 (PCR) [facility] Medical History (Updated 04/28/20 @ 20:24 by ANNA Restrepo) Breast cancer Cystitis Depression Fracture, humerus Hypertension Right kidney stone Surgical History (Updated 04/28/20 @ 20:24 by ANNA Restrepo) Fracture of surgical neck of humerus History of lumpectomy of right breast Family History (Updated 04/28/20 @ 20:26 by ANNA Restrepo) Father Stroke Mother Hypertension Pulmonary hypertension due to aortic valve disease Social History household members: spouse Smoking Status: Former smoker alcohol intake: current Discharge Plan Discharge Plan Patient Disposition: Home Provider Discharge Comment: You were admitted to the hospital with visual symptoms and possible facial droop. You did have a small stroke that was seen on the MRI but thankfully you have no apparent deficits at this time. You should take a baby aspirin and plavix for 3 weeks. Recommend a repeat cholesterol panel in a few months to recheck your LDL level (93 here). Your urine also had quite a bit of red and white blood cells and I recommend a 3 day course of antibiotics. Discharge orders & Medications Prescriptions: New aspirin 81 mg Tablet,Delayed Release (Dr/Ec) 81 mg PO DAILY 30 Days Qty: 30 RF: 0 clopidogrel 75 mg Tablet 75 mg PO DAILY 21 Days Qty: 21 RF: 0 cefdinir 300 mg capsule 300 mg PO BID 3 Days Qty: 6 RF: 0 Continued atorvastatin 40 mg Tablet 40 mg PO DAILY RF: 0 paroxetine HCl [Paxil] 10 mg Tablet 10 mg PO DAILY RF: 0 lisinopril 20 mg Tablet 20 mg PO DAILY RF: 0 cranberry 400 mg Capsule 400 mg PO DAILY RF: 0 omega-3 fatty acids-vitamin E 1,000 mg Capsule 1 cap PO DAILY RF: 0 Calcium 600 with Vitamin D3 1 cap PO DAILY RF: 0 Follow up/Referrals: Malachi Orr MD [Primary Care Provider] - Diet/Activity/Treatments Diet: Diet as Tolerated Activity: As tolerated Visit Report/Discharge Packet Instructions: Transient Ischemic Attack Discharge Data Primary Care Provider: Malachi Orr Attending Provider: Carol King VTE Deep Vein Thrombosis/Pulmonary Embolism Present on Admission: No
--- NOTE | 2020-04-29 11:47 | PT.IIE ---
Surgical History (Last Updated 04/28/20 @ 20:24 by Meredith Whiting [facility]) Fracture of surgical neck of humerus History of lumpectomy of right breast Medical History (Last Updated 04/28/20 @ 20:24 by Meredith Whiting [facility]) Breast cancer Cystitis Depression Fracture, humerus Hypertension Right kidney stone Physical Therapy Inpatient Evaluation/Re-Eval M1 PT/OT-IP Prior Functional Status Start: 04/29/20 11:00 Freq: NEEDED Status: Active Protocol: Document 04/29/20 11:47 AW (Rec: 04/29/20 12:13 AW [id number]) Medical Review Prior Functional Status Medical History Reviewed Yes Communication WNL. Pt is an effective verbal communicator. Mobility and Gait Pt is independently mobile without need for assistive device and without meaningful limit. She reports falls history but does not provide frequency. Activities of Daily Living and IADL's Independent. 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 Social History Household Members spouse Living Arrangements House Number of Floors (Floors) Two Floors Number of Stairs To Enter/Railing? 2 TAIWO with no rail. 17 steps with R rail ascending to second level for bedroom access. 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 She lives with her spouse, Levi. M2 PT-IP Current Condition Start: 04/29/20 11:00 Freq: NEEDED Status: Active Protocol: Document 04/29/20 11:47 AW (Rec: 04/29/20 12:13 AW [id number]) Physical Therapy Current Condition Current Condition Evaluation Date 04/29/20 Treatment Diagnosis R thalamic CVA subacute, impaired dynamic balance Onset Date 04/28/20 Precautions Other Precautions falls M3 PT-IP Subjective Start: 04/29/20 11:00 Freq: NEEDED Status: Active Protocol: Document 04/29/20 11:47 AW (Rec: 04/29/20 12:13 AW [id number]) Subjective Physical Therapy Visit Type Type Initial Evaluation Visit Start Time 11:29 Visit Stop Time 11:47 Total Visit Minutes 18 Notes Pt's spouse was present throughout session. Physical Therapy Visit Comments Patient Comments Pt is dressed and hoping to discharge soon. Patient Goals Return to work. Therapy Pain Assessment Pain When Pain Assessed During Mobility Pain Present Pain Present Denied Pain M4 PT-IP Mobility and Gait Start: 04/29/20 11:00 Freq: NEEDED Status: Active Protocol: Document 04/29/20 11:47 AW (Rec: 04/29/20 12:13 AW [id number]) PT-Transfer Assessment Sit to and From Stand Sit to and from Stand Independent Equipment Transfer Assistive Device Gait Belt Orthotic/Prosthetic Devices or Brace: No Transfers Transfer Destination Bed Transfer Technique Stand Step Pivot Transfer Ability Level of Assist Independent Comments Mobility Comments Pt was sitting EOB as PT arrived. She stood from the bed and participated in static balance assessment before ambulating in the hallway. On return to the room, she sat EOB again without need for assist. Gait Assessment Gait Gait Assistance Required: Standby Assistance,Contact Guard Assist Distance (Feet) 400 Assistive Devices Assistive Device None,Gait Belt Orthotic/Prosthetic Devices or Brace: No Gait Deviations General Gait Pattern Decreased Feet Clearance Factors Limiting Gait Function Factors Limiting Gait Function Poor Balance Comments Gait Comments Pt completed Functional Gait Assessment with score of . Pt scored 0/3 for gait with NBOS and had single points deducted for horizontal and vertical head turns, step over obstacle, eyes closed, walk backwards, and stairs. Stair Climbing Assessment Evaluation Level of Assist On Stairs Independent Devices Stair Climbing Assistive Devices Left Railing Technique/Endurance Stair Climbing Direction Ascend and Descend Stair Climbing Technique Step Over Step Number of Steps Climbed 3 Query Text: Stair Climbing Set # Repetitions (reps) 2 PT-Balance Assessment Sitting Balance and Reactions Static Sitting Balance Ability Normal Dynamic Sitting Balance Ability Normal Standing Balance and Reactions Static Standing Balance Ability Good Dynamic Standing Balance Ability Fair Balance Tests Romberg WNL EO and EC Tandem Standing unable Functional Assessments Functional Tests Functional Gait Assessment M5 PT-IP Objective Assessments Start: 04/29/20 11:00 Freq: NEEDED Status: Active Protocol: Document 04/29/20 11:47 AW (Rec: 04/29/20 12:13 AW [id number]) Orientation Orientation/Cognition Level of Alertness Alert Orientation Name,Date,Day of Week,Place, Situation Language Function Ability No Deficits Noted Safety Awareness Understands Safety Issues Memory Description Short Term Impaired Comments Pt recalled 2/3 words after three minutes. She was unable to recall the third word when given a category clue. Gross Range of Motion Upper Extremity ROM Assessment Within Functional Limits Lower Extremity ROM Assessment Within Functional Limits Strength Upper Extremity Strength Assessment Within Functional Limits Lower Extremity Strength Assessment Bilaterally Impaired Hip 4-/5 Knee 4/5 Ankle 4/5 Comments Strength Comments No unilateral deficit on exam. Coordination Assessment Gross Coordination Gross Coordination WNL Assessment Finger to Nose Test Normal Performance Sensation Assessment Sensation Gross Sensation WNL Muscle Tone Muscle Tone WNL Yes Other Assessments Other Other Assessments Occulomotor and vestibular exam grossly normal. M6 PT-IP Treatment Start: 04/29/20 11:00 Freq: NEEDED Status: Active Protocol: Document 04/29/20 11:47 AW (Rec: 04/29/20 12:13 AW [id number]) Physical Therapy Treatment Education Education Provided Safety Other Treatments Other Treatment Performed Provided education on role of PT, dynamic balance deficits, recommendation for outpatient PT, and signs of stroke. M7 PT-IP Assessment and Plan Start: 04/29/20 11:00 Freq: NEEDED Status: Active Protocol: Document 04/29/20 11:47 AW (Rec: 04/29/20 12:13 AW [id number]) PT Summary Assessment and Plan Summary Impairments Strength,Balance,Gait Assessment Summary Sudha is a 69 yo woman seen for PT evaluation per stroke protocol. MRI reveals subacute right thalamus infarct. Pt is independent in all regards at baseline but does report history of falls. On evaluation, pt presents with decreased strength in BLE and impaired dynamic balance. Pt states balance today is consistent with her baseline. Her score of 21/30 on Functional Gait Assessment is below norms for her age- matched peers (Walker, 2007), indicating increased risk of falls. Pt is safe to discharge home but would benefit from outpatient PT to address strength and balance deficits for amelioration of falls risk . Frequency of Treatment Frequency Of Treatment Discharge Recommendations To Nursing Amount of Assist Needed Independent Discharge Recommendations PT Discharge Recommendations Home,Outpatient PT Transportation Needs at Discharge Private Vehicle
--- NOTE | 2020-04-29 12:41 | PC.NURSE ---
Pt discharge education given to pt and spouse, discussed- s/s of stroke, education on TIA, medications, f/u appts, s/s of infection, reasons to seek medical attention. Pt and spouse expressed understanding of education. Pt dressed independently, all personal belongings packed and sent with pt and spouse. IV removed, intact, tolerated well. Tele removed, FLIGHT TEST MECHANIC informed. Pt left ambulatory assisted by CENTRAL SERVICE TECH and spouse, to POV.
--- NOTE | 2020-04-29 14:19 | CM.DPC ---
DCP Discharge Home Per MD, pt is medically stable to d/c home today as per PT initial eval recommending safe d/c home with spouse and outpt PT. Per RN, no concerns notes since SW assessment bedside this morning and pt was able to d/c home via spouse POV. Plan: Patient discharged home this afternoon via spouse POV and outpt follow up and no further SW needs at this time. JAH Meza
--- NOTE | 2020-04-30 08:29 | CM.DPC ---
DCP ASSESSMENT: Late entry for 04/29/20 DCP ASSESSMENT: Patient is a pleasant 69 year-old female who was admitted to the hospital for altered vision, possible word-finding difficult and drooping of right side of face, MRI found a small stroke. PCP is Monisha Orr. Primary payer is Medicare and [employer]. JAH and JAH Student met with patient?s and patient at bedside she was alert and oriented. Provided education on role of social work and discharge planning. 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 Provider reported there are no apparent deficits at this time. Patient reported she is ready to D/C home with . Physical therapy to assess patient to confirm safe plan of D/C home today. PLAN: Anticipate D/C home JAH Meza MSW Student Discharge Planning/Care Management CM Discharge Assessment Start: 04/29/20 11:44 Freq: Status: Discharge Protocol: Document 04/29/20 11:44 AL (Rec: 04/29/20 11:47 AL [id number]) Discharge Planning Assessment Assigned Bioinformatics Technician JAH Karimi Student Contact Information Levi Valladares, # Advance Directives? No History Provided By Patient,Medical Record Has Patient been admitted in last 30 No days? Prior Living Arrangements House Household Members spouse Type of transporation used prior to Drives own vehicle admit Independent with ADL's Yes Is patient alert and oriented? Yes Caregiver for Another No Barriers to Discharge No Discharge Plan Home Transportation Arrangement Levi Valladares will provide transportation Whiteboard Updated in Patient Room with Yes name and ext. # of Bioinformatics Technician Review Status In Process
== END 2020-04-29 12:43 | disposition home or self-care (01) ==
LOC: ED 17:58 → AC 17:59
PROVIDERS: Nurse Practitioner Family; Admitting Provider Internal Medicine; Emergency Provider Emergency Medicine; Family Provider Family Medicine; PCP Family Medicine; Referring Provider Emergency Medicine; Visit Provider Internal Medicine
DX: I63.59 Cerebral infarction due to unspecified occlusion or stenosis of other cerebral artery (principal); R53.1 Weakness; H53.9 Unspecified visual disturbance; I10 Essential (primary) hypertension; D69.6 Thrombocytopenia, unspecified; N30.01 Acute cystitis with hematuria; Z20.822 Contact with and (suspected) exposure to COVID-19
CPT/HCPCS: 36415; 70450; 70548; 70553; 80048; 80053; 80061; 80320; 81001; 82550; 82962; 83690; 83735; 83880; 84443; 84484; 85025; 85610; 85651; 85730; 86140; 87077; 87086; 87186; 87635; 93005; 97161; 99283; 99284; C9803; G0378

== ENCOUNTER → 2021-09-15 15:06 | Outpatient (CLI) | payer MEDICARE, SELFPAY ==
[2020-04-28 18:04] VITALS: BMI 26.6
--- NOTE | 2021-09-15 | DI.CT.S_ITS ---
PROCEDURE: CT HEAD/BRAIN WO CON INDICATIONS: Transient cerebral ischemic attack, unspecified TECHNIQUE: Noncontrast 4.5 mm thick angled axial sections acquired from the foramen magnum to the vertex, with coronal and sagittal reformats. For radiation dose reduction, the following was used: automated exposure control, adjustment of mA and/or kV according to patient size. COMPARISON: [facility], CT, CT HEAD/BRAIN WO CON, 04/28/2020, 17:10. [facility], MR, MR STROKE, 04/29/2020, 8:22. FINDINGS: Image quality: Excellent. CSF spaces: Basal cisterns are patent. No extra-axial fluid collections. The ventricles are symmetric in size and shape. Brain: No intracranial bleeds or masses. There is cerebral volume loss for age, with resultant ventricular and sulcal prominence. There are periventricular and deep white matter chronic small vessel ischemic changes. There is intracranial internal carotid artery atherosclerosis. Skull and face: Calvarium and visualized facial bones appear intact, without suspicious lesions. Sinuses: Visualized sinuses and mastoids are clear. IMPRESSION: Unremarkable intracranial study for age. Dictated by: Dimas Shook M.D. on 09/15/2021 at 15:47 Approved by: Dimas Shook M.D. on 09/15/2021 at 15:55
== END ==
PROVIDERS: Family Provider Family Medicine; PCP Family Medicine; Referring Provider Nurse Practitioner Family; Visit Provider Nurse Practitioner Family
DX: G45.9 Transient cerebral ischemic attack, unspecified (principal); K14.8 Other diseases of tongue; R29.810 Facial weakness
CPT/HCPCS: 70450

== ENCOUNTER 2022-10-26 12:25 | Emergency (ER) | payer MEDICARE, SELFPAY ==
[2020-04-28 18:04] VITALS: BMI 26.6
[2022-10-26 12:32] VITALS: BP 178/80; PULSE 70; RESP 14; TEMP 36.6; O2SAT 99; BMI 26.5
--- NOTE | 2022-10-26 12:45 | DI.RAD.S_ITS ---
PROCEDURE: XR ANKLE RT MIN 3V INDICATIONS: fall, pain ankle TECHNIQUE: 3 views of the ankle were acquired. COMPARISON: None. FINDINGS: Bones: No fractures or dislocations. Ankle mortise is normally aligned. Osteoarthritic changes are noted throughout midfoot and hindfoot joints. No suspicious bony lesions. Soft tissues: No tibiotalar joint effusion. Achilles tendon appears normal. IMPRESSION: Midfoot and hindfoot joint osteoarthritis. No acute right ankle fracture or dislocation. Dictated by: Shawn Watters M.D. on 10/26/2022 at 13:16 Approved by: Shawn Watters M.D. on 10/26/2022 at 13:16
--- NOTE | 2022-10-26 13:01 | ED.GENADULT ---
HPI - General Adult General Chief complaint: Trauma Stated complaint: fell/lac in siddiqui/rt ankle inj Time Seen by Provider: 10/26/22 12:51 Source: patient Mode of arrival: Ambulatory History of Present Illness HPI narrative: Patient is a 72-year-old female who is here for evaluation of an injury that she sustained when she tripped and fell. It is a cut to the front of her left leg. She also has some discomfort to the inside of her right foot. She did hit her head but no loss of consciousness. She is not on blood thinners. She reports no other injuries from the event. Related Data Home Medications Medication Instructions Recorded Confirmed Calcium 600 with Vitamin D3 1 cap PO DAILY 04/28/20 04/29/20 atorvastatin 40 mg tablet 40 mg PO DAILY 04/28/20 04/28/20 cranberry 400 mg capsule 400 mg PO DAILY 04/28/20 04/28/20 lisinopril 20 mg tablet 20 mg PO DAILY 04/28/20 04/28/20 omega-3 fatty acids-vitamin E 1 cap PO DAILY 04/28/20 04/29/20 1,000 mg capsule paroxetine HCl 10 mg tablet (Paxil) 10 mg PO DAILY 04/28/20 04/28/20 Allergies Allergy/AdvReac Type Severity Reaction Status Date / Time Penicillins [PENICILLINS] Allergy Unknown HIVES-SEVERITY Verified 10/26/22 12:36 NOT LISTED Review of Systems Constitutional Constitutional: Reports system reviewed and no additional complaints, except as documented ENT Ears, Nose, Mouth, and Throat: Reports system reviewed and no additional complaints, except as documented Musculoskeletal Musculoskeletal: Reports system reviewed and no additional complaints, except as documented Integumentary/Breasts Skin/Breast: Reports system reviewed and no additional complaints, except as documented Neurologic Neurologic: Reports system reviewed and no additional complaints, except as documented Hematologic/Lymphatic On Anticoagulants: No Patient History Medical History Breast cancer Cystitis Depression Fracture, humerus Hypertension Right kidney stone Surgical History (Updated 04/28/20 @ 20:24 by ANNA Restrepo) Fracture of surgical neck of humerus History of lumpectomy of right breast Family History (Updated 04/28/20 @ 20:26 by ANNA Restrepo) Father Stroke Mother Hypertension Pulmonary hypertension due to aortic valve disease Social History household members: spouse Smoking Status: Former smoker alcohol intake: current Smoking Status: Former smoker alcohol intake frequency: 0-2 drinks per day Substance Use Type: does not use Exam Initial Vital Signs Initial Vital Signs: Vital Signs Temperature 97.8 F 10/26/22 12:32 Pulse Rate 70 10/26/22 12:32 Respiratory Rate 14 10/26/22 12:32 Blood Pressure 178/80 H 10/26/22 12:32 Pulse Oximetry 99 10/26/22 12:32 Oxygen Delivery Method Room Air 10/26/22 12:32 Const General: cooperative and healthy appearing HENMT Head: normal to inspection and normocephalic Resp Effort & Inspection: normal respiratory effort Skin Other: 4 cm laceration to left anterior siddiqui Neuro General: patient alert and patient awake Extrem Other: Left ankle was swollen but this is not new. Has discomfort along the medial aspect of the right ankle in the medial right foot. Procedures Laceration Repair Laceration 1: Site: lower extremity Side (If applicable): left Size (cm): 4 Description: linear Depth: simple, single layer Local Anesthetic: lidocaine 1% Amount of anesthesia used (mL): 5 Pre-repair: wound explored and irrigated extensively Skin layer closed with: nylon Skin layer suture size: 3-0 Number of sutures: 10 Technique: simple, interrupted Course Orders Ordered: ED Orders 10/26/22 12:45 XR ankle RT min 3V Stat Discontinued Medications Bacitracin (Bacitracin Oint 0.9 Gm Pckt) 1 applic TOP NOW ONE Stop: 10/26/22 13:35 Vital Signs Vital signs: Vital Signs - 8 hr 10/26/22 12:32 10/26/22 13:02 Temperature 97.8 F Pulse Rate 70 74 Respiratory Rate 14 16 Blood Pressure 178/80 H 156/88 H Pulse Oximetry 99 94 Oxygen Delivery Method Room Air Room Air Medical Decision Making Imaging Data Extremity x-ray #1: Radiologist's Impression: PROCEDURE:? XR ANKLE RT MIN 3V ? INDICATIONS:? fall, pain ankle ? TECHNIQUE:? 3 views of the ankle were acquired.? ? COMPARISON:? None. ? FINDINGS:? ? Bones:? No fractures or dislocations.? Ankle mortise is normally aligned.? Osteoarthritic changes are noted throughout midfoot and hindfoot joints.? No suspicious bony lesions.? ? Soft tissues:? No tibiotalar joint effusion.? Achilles tendon appears normal.? ? ? IMPRESSION:? Midfoot and hindfoot joint osteoarthritis.? No acute right ankle fracture or dislocation. [facility] Narrative Medical decision making narrative: Laceration was closed as described above. Right lower extremity it x-ray is unremarkable. No indication for further radiologic studies. Patient was given care instructions and return precautions. She expressed understanding and agreement. Discharge Plan Departure Patient Disposition: Home Clinical Impression: Laceration Instructions: DI for Laceration Repair Activity Restrictions/Additional Instructions: Stitches need to be removed in 7-10 days. You can go to the primary doctor or the walk-in clinic for this. You can shower like normal. You can use topical antibiotic ointment such as bacitracin or Neosporin. Return to the emergency department for new or worsening symptoms. Prescriptions: No Action atorvastatin 40 mg Tablet 40 mg PO DAILY paroxetine HCl [Paxil] 10 mg Tablet 10 mg PO DAILY lisinopril 20 mg Tablet 20 mg PO DAILY cranberry 400 mg Capsule 400 mg PO DAILY omega-3 fatty acids-vitamin E 1,000 mg Capsule 1 cap PO DAILY Calcium 600 with Vitamin D3 1 cap PO DAILY Referrals: Malachi Orr MD [Primary Care Provider] - Stand Alone Forms: Patient Portal/API
[2022-10-26 13:02] VITALS: BP 156/88; PULSE 74; RESP 16; O2SAT 94
[2022-10-26] MEDS: BACITRACIN OINT 0.9 GM PCKT 1 APPLIC TOP (13:36)
--- NOTE | 2022-10-26 13:40 | PC.NURSE ---
Provider inserted 9 stitches which patient tolerated well. I cleansed, applied bacitracin, new gauze ,and ange wrap. Patient aware of wound care needs at home.
[2022-10-26 13:45] VITALS: BP 154/100; PULSE 78; RESP 16; O2SAT 97
== END 2022-10-26 13:48 | disposition home or self-care (01) ==
PROVIDERS: Emergency Provider Emergency Medicine; Family Provider Family Medicine; PCP Family Medicine
DX: S81.812A Laceration without foreign body, left lower leg, initial encounter (principal); M25.571 Pain in right ankle and joints of right foot; S09.90XA Unspecified injury of head, initial encounter; W18.30XA Fall on same level, unspecified, initial encounter; Z79.899 Other long term (current) drug therapy
CPT/HCPCS: 12002; 73610; 99283